=== PATIENT | male | born 1955 | race Caucasian/White ===

== ENCOUNTER 2020-09-13 08:11 | Emergency (ER) | payer OTHER ==
[2020-09-13] MEDS: Sodium Chloride 0.9% 10 ML Syringe FLUSH PRN ×2 (08:15→09:24)
[2020-09-13] MEDS ORDERED: Metoprolol Tartrate 50 MG Tab PO STA (08:37)
[2020-09-13] MEDS ORDERED: Aspirin 81 MG Tab.Chew PO STA (08:37)
--- NOTE | 2020-09-13 08:53 | EDM.PDOC ---
ED HPI GENERAL MEDICAL PROBLEM - General Chief Complaint: Chest Pain Stated Complaint: Dyspnea Time Seen by Provider: 09/13/20 08:35 Source of Information: Reports: Patient, Family History Limitations: Reports: No Limitations - History of Present Illness INITIAL COMMENTS - FREE TEXT/NARRATIVE: Patient presented to the ED because of chest pressure and dyspnea which started at 0630 today and is getting worse. He feels like his chest is caving in and is short of breath even with mild physical activity. He denies having fever,chills, cough or cold symptoms. No palpitations or edema noted. Chest Pain Score (Numeric/FACES): 5 - Related Data Allergies Allergy/AdvReac Type Severity Reaction Status Date / Time No Known Allergies Allergy Verified 09/13/20 15:43 Home Meds: Home Meds Furosemide [Lasix] 20 mg PO DAILY #30 tab 09/13/20 [Rx] ED ROS GENERAL - Review of Systems Review Of Systems: See Below Constitutional: Reports: Fatigue HEENT: Reports: No Symptoms Respiratory: Reports: Shortness of Breath Cardiovascular: Reports: Dyspnea on Exertion, Other (chest pressure) Endocrine: Reports: No Symptoms GI/Abdominal: Reports: No Symptoms : Reports: No Symptoms Musculoskeletal: Reports: No Symptoms Skin: Reports: No Symptoms Neurological: Reports: No Symptoms Psychiatric: Reports: No Symptoms ED EXAM, GENERAL - Physical Exam Exam: See Below Exam Limited By: No Limitations General Appearance: Alert, No Apparent Distress Eye Exam: Bilateral Eye: PERRL Ears: Normal External Exam, Normal Canal Nose: Normal Inspection, Normal Mucosa, No Blood Throat/Mouth: Normal Inspection, Normal Lips, Normal Teeth Head: Atraumatic, Normocephalic Neck: Normal Inspection, Supple, Non-Tender, Full Range of Motion Respiratory/Chest: No Respiratory Distress, Decreased Breath Sounds, Crackles Cardiovascular: Normal Peripheral Pulses, No JVD, No Murmur, Tachycardia GI/Abdominal: Normal Bowel Sounds, Soft, Non-Tender, No Organomegaly, No Distention, No Abnormal Bruit Back Exam: Normal Inspection, Full Range of Motion Extremities: Normal Inspection, Normal Range of Motion, Non-Tender, No Pedal Edema, Normal Capillary Refill Neurological: Alert, Oriented, CN II-XII Intact, Normal Cognition, Normal Reflexes, No Motor/Sensory Deficits Psychiatric: Normal Affect, Normal Mood #1 Interpretation EKG Date: 09/13/20 Time: 08:11 Rhythm: Other (Sinus Tach) Rate (Beats/Min): 113 Russell: Normal P-Wave: Present QRS: Normal ST-T: Normal QT: Normal OK/PQ Interval: 163 Comparison: NA - No Prior EKG EKG Interpretation Comments: Sinus Tach PVC's Course - Vital Signs Text/Narrative:: Lab/EKG/CXR result was reviewed and discussed with patient and his Lasix 40 mg IV x1 Zaroxolyn 2.5 mg PO x1 ASA 324 mg PO x1 Metoprolol tartrate 50 mg PO x1 Last Recorded V/S: Last Vital Signs Temp 36.8 C 09/13/20 08:30 Pulse 108 H 09/13/20 08:54 Resp 13 09/13/20 08:30 BP 158/99 H 09/13/20 08:54 Pulse Ox 98 09/13/20 08:30 - Orders/Labs/Meds Orders: Active Orders 24 hr Category Date Time Status Saline Lock Insert [OM.PC] Routine Oth 09/13/20 08:37 Ordered EKG 12 Lead [EK] Routine Ther 09/13/20 08:37 Ordered Labs: Laboratory Tests 09/13/20 09/13/20 09/13/20 Range/Units 08:50 08:50 08:50 WBC 7.2 (3.2-10.1) x10-3/uL RBC 5.28 (3.90-5.90) x10(6)uL Hgb 14.7 (12.9-17.7) g/dL Hct 43.3 (38.3-50.1) % MCV 82.1 (80.8-98.7) fL MCH 27.9 (27.0-33.3) pg MCHC 33.9 (28.7-35.3) g/dL RDW 13.4 (12.4-15.0) % Plt Count 224 (117-477) x10(3)uL MPV 8.2 (6.7-11.0) fL Neut % (Auto) 69.5 (40.3-71.8) % Lymph % (Auto) 19.6 (15.8-45.3) % George % (Auto) 7.1 (5.5-15.2) % Eos % (Auto) 3.0 (0.1-6.8) % Baso % (Auto) 0.8 (0.3-3.8) % Neut # (Auto) 5.0 (1.7-6.9) x10-3/uL Lymph # (Auto) 1.4 (0.5-4.5) x10-3/uL George # (Auto) 0.5 (0.0-1.2) x10-3/uL Eos # (Auto) 0.2 (0.0-0.6) x10-3/uL Baso # (Auto) 0.1 (0.0-0.3) x10-3/uL D-Dimer, Quantitative (0.0-0.59) mg/LFEU Sodium 137 (135-145) mmol/L Potassium 4.2 (3.5-5.3) mmol/L Chloride 101 (100-110) mmol/L Carbon Dioxide 30 (21-32) mmol/L BUN 18 (7-18) mg/dL Creatinine 1.1 (0.70-1.30) mg/dL Est Cr Clr Drug Dosing TNP Estimated GFR (MDRD) > 60 (>60) BUN/Creatinine Ratio 16.4 (9-20) Glucose 322 H (80-116) mg/dL Calcium 8.4 L (8.6-10.2) mg/dL Total Bilirubin 0.3 (0.1-1.3) mg/dL AST 12 (5-25) IU/L ALT 19 (12-36) U/L Alkaline Phosphatase 88 (56-112) IU/L Troponin I 19.4 (4.0-60.3) pg/mL NT-Pro-B Natriuret Pep (<=125) pg/mL Total Protein 7.4 (6.0-8.0) g/dL Albumin 3.1 L (3.2-4.6) g/dL Globulin 4.3 g/dL Albumin/Globulin Ratio 0.7 09/13/20 09/13/20 Range/Units 08:50 08:50 WBC (3.2-10.1) x10-3/uL RBC (3.90-5.90) x10(6)uL Hgb (12.9-17.7) g/dL Hct (38.3-50.1) % MCV (80.8-98.7) fL MCH (27.0-33.3) pg MCHC (28.7-35.3) g/dL RDW (12.4-15.0) % Plt Count (117-477) x10(3)uL MPV (6.7-11.0) fL Neut % (Auto) (40.3-71.8) % Lymph % (Auto) (15.8-45.3) % George % (Auto) (5.5-15.2) % Eos % (Auto) (0.1-6.8) % Baso % (Auto) (0.3-3.8) % Neut # (Auto) (1.7-6.9) x10-3/uL Lymph # (Auto) (0.5-4.5) x10-3/uL George # (Auto) (0.0-1.2) x10-3/uL Eos # (Auto) (0.0-0.6) x10-3/uL Baso # (Auto) (0.0-0.3) x10-3/uL D-Dimer, Quantitative 0.59 (0.0-0.59) mg/LFEU Sodium (135-145) mmol/L Potassium (3.5-5.3) mmol/L Chloride (100-110) mmol/L Carbon Dioxide (21-32) mmol/L BUN (7-18) mg/dL Creatinine (0.70-1.30) mg/dL Est Cr Clr Drug Dosing Estimated GFR (MDRD) (>60) BUN/Creatinine Ratio (9-20) Glucose (80-116) mg/dL Calcium (8.6-10.2) mg/dL Total Bilirubin (0.1-1.3) mg/dL AST (5-25) IU/L ALT (12-36) U/L Alkaline Phosphatase (56-112) IU/L Troponin I (4.0-60.3) pg/mL NT-Pro-B Natriuret Pep 1856 H* (<=125) pg/mL Total Protein (6.0-8.0) g/dL Albumin (3.2-4.6) g/dL Globulin g/dL Albumin/Globulin Ratio Meds: Medications Discontinued Medications Generic Name Dose Route Start Last Admin Trade Name Freq PRN Reason Stop Dose Admin Aspirin 324 mg 09/13/20 08:37 09/13/20 08:35 Aspirin 81 Mg Tab.Chew PO 09/13/20 08:38 324 mg NOW STA Administration Furosemide 40 mg 09/13/20 09:19 09/13/20 09:24 Furosemide 40 Mg/4 Ml Vial IVPUSH 09/13/20 09:20 40 mg NOW ONE Administration Metolazone 2.5 mg 09/13/20 09:19 09/13/20 09:24 Metolazone 2.5 Mg Tab PO 09/13/20 09:20 2.5 mg NOW STA Administration Metoprolol Tartrate 50 mg 09/13/20 08:37 09/13/20 08:54 Metoprolol Tartrate 50 Mg Tab PO 09/13/20 08:38 50 mg NOW STA Administration Sodium Chloride 10 ml 09/13/20 08:37 09/13/20 09:24 Sodium Chloride 0.9% 10 Ml Syringe FLUSH 10 ml ASDIRECTED PRN Administration Keep Vein Open Departure - Departure Time of Disposition: 10:45 Disposition: Home, Self-Care 01 Condition: Good Clinical Impression: New onset of congestive heart failure Prescriptions: Furosemide [Lasix] 20 mg PO DAILY #30 tab Instructions: Heart Failure, Self Care, [id number], Nonspecific Chest Pain, Adult, [id number] Referrals: Sudeep Salinas MD [Primary Care Provider] - Forms: ED Department Discharge Additional Instructions: Please read discharge instructions on chest pain and congestive heart failure Low salt diet Take lasix/furosemide 20 mg daily in the morning Call your clinic as soon as you get home for a follow up visit this week with regards to your congestive heart failure - My Orders Last 24 Hours: My Active Orders 09/13/20 08:37 Saline Lock Insert [OM.PC] Routine EKG 12 Lead [EK] Routine - Assessment/Plan Last 24 Hours: My Active Orders 09/13/20 08:37 Saline Lock Insert [OM.PC] Routine EKG 12 Lead [EK] Routine
[2020-09-13] MEDS ORDERED: Furosemide 40 MG/4 ML VIAL IVPUSH ONE (09:19)
[2020-09-13] MEDS ORDERED: Metolazone 2.5 MG Tab PO STA (09:19)
--- NOTE | 2020-09-13 13:03 | CR ---
INDICATION: Chest pain, dyspnea, cough. CHEST ONE-VIEW 11366: Two AP upright portable views of the chest were obtained 09/13/20 - no comparisons. The heart appeared normal in size. The mediastinum was unremarkable except for minimal calcification suggested in the arch of the aorta. Heavy markings are scattered about the lungs, but particularly prominent in the lung bases raising question of areas of patchy bronchopneumonia and/or fibrosis. No gross consolidating pneumonia, or effusion was identified. Somewhat flattened diaphragm leaf and hyperaeration raises question of COPD - correlate clinically. Overlying EKG leads are noted. IMPRESSION: 1. There are heavy markings scattered about the lungs, particularly the lung bases, which may be on the basis of pulmonary fibrosis, although areas of patchy pneumonia cannot be excluded - correlate clinically. 2. Possible COPD. 3. ASD aorta is suggested. MTDD
== END 2020-09-13 10:55 | disposition home or self-care (01) ==
LOC: FB.ED 08:11
DX: I50.9 Heart failure, unspecified (principal); R00.0 Tachycardia, unspecified; Z79.899 Other long term (current) drug therapy
CPT/HCPCS: 36415; 71045; 80053; 83880; 84484; 85025; 85379; 93005; 96374; 99285; A9270; J1940

== ENCOUNTER 2020-09-29 04:51 | Emergency (ER) | payer MEDICAID, OTHER ==
[2020-09-29] MEDS ORDERED: Furosemide 40 MG/4 ML VIAL IVPUSH ONE (05:11)
[2020-09-29] MEDS ORDERED: Aspirin 81 MG Tab.Chew PO ONE (05:12)
[2020-09-29] MEDS ORDERED: Nitroglycerin 0.4 MG Tab.SL SL PRN (05:12)
[2020-09-29] MEDS ORDERED: Metolazone 2.5 MG Tab PO STA (05:36)
[2020-09-29] MEDS ORDERED: hydrALAZINE 20 MG/ML SDV IVPUSH STA (05:36)
--- NOTE | 2020-09-29 05:44 | EDM.PDOC ---
ED HPI GENERAL MEDICAL PROBLEM - General Chief Complaint: Cardiovascular Problem Stated Complaint: SOB Time Seen by Provider: 09/29/20 05:00 Source of Information: Reports: Patient, Family History Limitations: Reports: No Limitations - History of Present Illness INITIAL COMMENTS - FREE TEXT/NARRATIVE: Patient is a 64 YO WM who presented to the ED because of sudden onset of dyspnea and chest pressure at 0330 while watching TV. There is no nausea, vomiting or diaphoresis. Denies having any fever, chills, cough/ cold symptoms. He was diagnosed with CHF 2 weeks ago and started on lasix 20 daily, scheduled to have echocardiogram at [facility] this coming . 1 week ago he went for follow up visit at the [facility] in [facility] and his lasix was reduced fro 20 mg to 10 mg daily. - Related Data Allergies Allergy/AdvReac Type Severity Reaction Status Date / Time No Known Allergies Allergy Verified 09/13/20 15:43 Home Meds: Home Meds Furosemide [Lasix] 20 mg PO DAILY #30 tab 09/13/20 [Rx] Past Medical History Cardiovascular History: Reports: Heart Failure, Hypertension Endocrine/Metabolic History: Reports: Diabetes, Type II - Infectious Disease History Infectious Disease History: Reports: Chicken Pox, Measles, Mumps Social & Family History - Family History Family Medical History: No Pertinent Family History - Tobacco Use Tobacco Use Status *Q: Never Tobacco User - Caffeine Use Caffeine Use: Reports: Coffee - Recreational Drug Use Recreational Drug Use: No ED ROS GENERAL - Review of Systems Review Of Systems: See Below Constitutional: Reports: No Symptoms HEENT: Reports: No Symptoms Respiratory: Reports: Shortness of Breath Cardiovascular: Reports: Orthopnea Endocrine: Reports: No Symptoms GI/Abdominal: Reports: No Symptoms : Reports: No Symptoms Musculoskeletal: Reports: No Symptoms Skin: Reports: No Symptoms Neurological: Reports: No Symptoms Psychiatric: Reports: No Symptoms ED EXAM, GENERAL - Physical Exam Exam: See Below Exam Limited By: No Limitations General Appearance: Alert, No Apparent Distress Eye Exam: Bilateral Eye: PERRL Ears: Normal External Exam, Normal Canal Nose: Normal Inspection, Normal Mucosa, No Blood Throat/Mouth: Normal Inspection, Normal Lips, Normal Teeth, Normal Gums Head: Atraumatic, Normocephalic Neck: Normal Inspection, Supple, Non-Tender, Full Range of Motion Respiratory/Chest: No Respiratory Distress, No Accessory Muscle Use, Chest Non- Tender, Decreased Breath Sounds, Crackles Cardiovascular: Normal Peripheral Pulses, Regular Rate, Rhythm, No Edema, No Gallop, No JVD, No Murmur, No Rub, Tachycardia GI/Abdominal: Normal Bowel Sounds, Soft, Non-Tender, No Organomegaly, No Distention, No Abnormal Bruit Back Exam: Normal Inspection, Full Range of Motion Extremities: Normal Inspection, Normal Range of Motion, Non-Tender, No Pedal Edema Neurological: Alert, Oriented, CN II-XII Intact, Normal Cognition #1 Interpretation EKG Date: 09/29/20 Time: 04:48 Rhythm: Other (Sinus tach) Rate (Beats/Min): 118 Rousseau: Normal P-Wave: Present QRS: Normal ST-T: Normal QT: Normal Comparison: Change From Previous EKG EKG Interpretation Comments: Sinus tach Flat t waves anterolateral leads Course - Vital Signs Text/Narrative:: Lab/EKG/CXR result was reviewed and discussed with patient Lasix 40 mg IV x1 Zaroxolyn 2.5 mg PO x1 Hydralazine 20 mg IV x1 NTG 0.4 mg SL x1 ASA 324 mg PO x1 Loveox 90 mg SC x1 Code Status: Full Code Covid test:-pending Case discussed with Dr Palma who agreed with the above plan. Anshul is in divert and patient will be in our ED at [facility] until a bed is available. If he deteriorates then [facility] will expedite the transfer. Last Recorded V/S: Last Vital Signs Temp 35.9 C L 09/29/20 04:52 Pulse 116 H 09/29/20 04:52 Resp 22 H 09/29/20 04:52 BP 176/114 H 09/29/20 05:01 Pulse Ox 96 09/29/20 04:52 - Orders/Labs/Meds Orders: Active Orders 24 hr Category Date Time Status Chest 1V Frontal [CR] Stat Exams 09/29/20 05:26 Taken CORONAVIRUS COVID-19 HADLEY [MOLEC] Stat Lab 09/29/20 06:37 Ordered Nitroglycerin [Nitrostat] Med 09/29/20 05:12 Active 0.4 mg SL Q5M PRN EKG 12 Lead [EK] Routine Ther 09/29/20 05:11 Ordered Medication Orders Nitroglycerin (Nitroglycerin 0.4 Mg Tab.Sl) 0.4 mg SL Q5M PRN PRN Reason: Chest Pain Last Admin: 09/29/20 05:01 Dose: 0.4 mg Documented by: ASHLEY Labs: Laboratory Tests 09/29/20 09/29/20 09/29/20 Range/Units 05:15 05:15 05:15 WBC 9.4 (3.2-10.1) x10-3/uL RBC 5.18 (3.90-5.90) x10(6)uL Hgb 14.3 (12.9-17.7) g/dL Hct 43.0 (38.3-50.1) % MCV 83.0 (80.8-98.7) fL MCH 27.7 (27.0-33.3) pg MCHC 33.4 (28.7-35.3) g/dL RDW 13.7 (12.4-15.0) % Plt Count 241 (117-477) x10(3)uL MPV 8.1 (6.7-11.0) fL Neut % (Auto) 64.1 (40.3-71.8) % Lymph % (Auto) 24.8 (15.8-45.3) % Hooker % (Auto) 7.3 (5.5-15.2) % Eos % (Auto) 3.0 (0.1-6.8) % Baso % (Auto) 0.8 (0.3-3.8) % Neut # (Auto) 6.0 (1.7-6.9) x10-3/uL Lymph # (Auto) 2.3 (0.5-4.5) x10-3/uL Hooker # (Auto) 0.7 (0.0-1.2) x10-3/uL Eos # (Auto) 0.3 (0.0-0.6) x10-3/uL Baso # (Auto) 0.1 (0.0-0.3) x10-3/uL PT (9.0-11.1) sec INR (1.00-1.24) APTT (24.4-33.2) SECONDS Sodium 141 (135-145) mmol/L Potassium 4.1 (3.5-5.3) mmol/L Chloride 103 (100-110) mmol/L Carbon Dioxide 28 (21-32) mmol/L BUN 19 H (7-18) mg/dL Creatinine 1.3 (0.70-1.30) mg/dL Est Cr Clr Drug Dosing TNP Estimated GFR (MDRD) 56 L (>60) BUN/Creatinine Ratio 14.6 (9-20) Glucose 302 H (80-116) mg/dL Calcium 8.9 (8.6-10.2) mg/dL Total Bilirubin 0.3 (0.1-1.3) mg/dL AST 17 D (5-25) IU/L ALT 22 D (12-36) U/L Alkaline Phosphatase 94 (56-112) IU/L Troponin I 19.4 (4.0-60.3) pg/mL NT-Pro-B Natriuret Pep 1106 H* (<=125) pg/mL Total Protein 7.6 (6.0-8.0) g/dL Albumin 3.2 (3.2-4.6) g/dL Globulin 4.4 g/dL Albumin/Globulin Ratio 0.7 08/25/21 Range/Units 05:15 WBC (3.2-10.1) x10-3/uL RBC (3.90-5.90) x10(6)uL Hgb (12.9-17.7) g/dL Hct (38.3-50.1) % MCV (80.8-98.7) fL MCH (27.0-33.3) pg MCHC (28.7-35.3) g/dL RDW (12.4-15.0) % Plt Count (117-477) x10(3)uL MPV (6.7-11.0) fL Neut % (Auto) (40.3-71.8) % Lymph % (Auto) (15.8-45.3) % Hooker % (Auto) (5.5-15.2) % Eos % (Auto) (0.1-6.8) % Baso % (Auto) (0.3-3.8) % Neut # (Auto) (1.7-6.9) x10-3/uL Lymph # (Auto) (0.5-4.5) x10-3/uL Hooker # (Auto) (0.0-1.2) x10-3/uL Eos # (Auto) (0.0-0.6) x10-3/uL Baso # (Auto) (0.0-0.3) x10-3/uL PT 9.9 (9.0-11.1) sec INR 0.91 L (1.00-1.24) APTT 26.3 (24.4-33.2) SECONDS Sodium (135-145) mmol/L Potassium (3.5-5.3) mmol/L Chloride (100-110) mmol/L Carbon Dioxide (21-32) mmol/L BUN (7-18) mg/dL Creatinine (0.70-1.30) mg/dL Est Cr Clr Drug Dosing Estimated GFR (MDRD) (>60) BUN/Creatinine Ratio (9-20) Glucose (80-116) mg/dL Calcium (8.6-10.2) mg/dL Total Bilirubin (0.1-1.3) mg/dL AST (5-25) IU/L ALT (12-36) U/L Alkaline Phosphatase (56-112) IU/L Troponin I (4.0-60.3) pg/mL NT-Pro-B Natriuret Pep (<=125) pg/mL Total Protein (6.0-8.0) g/dL Albumin (3.2-4.6) g/dL Globulin g/dL Albumin/Globulin Ratio Meds: Medications Generic Name Dose Route Start Last Admin Trade Name Freq PRN Reason Stop Dose Admin Nitroglycerin 0.4 mg 09/29/20 05:12 09/29/20 05:01 Nitroglycerin 0.4 Mg Tab.Sl SL 0.4 mg Q5M PRN Administration Chest Pain Discontinued Medications Generic Name Dose Route Start Last Admin Trade Name Freq PRN Reason Stop Dose Admin Aspirin 324 mg 09/29/20 05:12 09/29/20 04:56 Aspirin 81 Mg Tab.Chew PO 09/29/20 05:13 324 mg ONETIME ONE Administration Enoxaparin Sodium 90 mg 09/29/20 06:48 Enoxaparin 100 Mg/1 Ml Syringe SUBCUT 09/29/20 06:49 ONETIME ONE Furosemide 40 mg 09/29/20 05:11 09/29/20 05:18 Furosemide 40 Mg/4 Ml Vial IVPUSH 09/29/20 05:12 40 mg NOW ONE Administration Hydralazine HCl 20 mg 09/29/20 05:36 09/29/20 05:42 Hydralazine 20 Mg/Ml Sdv IVPUSH 09/29/20 05:37 20 mg NOW STA Administration Metolazone 2.5 mg 09/29/20 05:36 09/29/20 05:42 Metolazone 2.5 Mg Tab PO 09/29/20 05:37 2.5 mg NOW STA Administration Departure - Departure Time of Disposition: 06:05 Disposition: DC/Tfer to [facility] 02 Reason for Transfer *Q: Other Condition: Good Clinical Impression: New onset of congestive heart failure, Hypertensive crisis, Acute coronary syndrome Referrals: PCP,None [Primary Care Provider] - Forms: ED Department Discharge Sepsis Event Note (ED) - Evaluation Sepsis Screening Result: No Definite Risk - Focused Exam Vital Signs: Vital Signs Temp Pulse Resp BP BP Pulse Ox Pulse Ox 09/29/20 05:01 176/114 H 09/29/20 04:52 35.9 C L 116 H 22 H 159/125 H 87 L 96 - My Orders Last 24 Hours: My Active Orders 09/29/20 05:11 EKG 12 Lead [EK] Routine 09/29/20 05:12 Nitroglycerin [Nitrostat] 0.4 mg SL Q5M PRN 09/29/20 05:26 Chest 1V Frontal [CR] Stat 09/29/20 06:37 CORONAVIRUS COVID-19 HADLEY [MOLEC] Stat - Assessment/Plan Last 24 Hours: My Active Orders 09/29/20 05:11 EKG 12 Lead [EK] Routine 09/29/20 05:12 Nitroglycerin [Nitrostat] 0.4 mg SL Q5M PRN 09/29/20 05:26 Chest 1V Frontal [CR] Stat 09/29/20 06:37 CORONAVIRUS COVID-19 HADLEY [MOLEC] Stat
[2020-09-29] MEDS ORDERED: Enoxaparin 100 MG/1 ML Syringe SUBCUT ONE (06:48)
[2020-09-29] MEDS ORDERED: Nicotine 21 MG/24 Hr Patch TRDERM ONE (11:28)
== END 2020-09-29 13:30 ==
LOC: FB.ED 04:51
DX: I24.9 Acute ischemic heart disease, unspecified (principal); I11.0 Hypertensive heart disease with heart failure; I50.9 Heart failure, unspecified; I16.9 Hypertensive crisis, unspecified; E11.9 Type 2 diabetes mellitus without complications; Z79.899 Other long term (current) drug therapy; Z20.822 Contact with and (suspected) exposure to COVID-19
CPT/HCPCS: 36415; 71045; 80053; 83880; 84484; 85025; 85610; 85730; 87635; 93005; 96372; 96374; 96375; 99285; A9270; J0360; J1650; J1940; U0002

== ENCOUNTER 2022-03-20 20:10 | Emergency (ER) | payer MEDICARE, MEDICAID ==
[2022-03-20] MEDS ORDERED: Ketorolac 30 MG/ML SDV IM ONE (20:17)
[2022-03-20] MEDS ORDERED: Lidocaine 2% Viscous Solution 15 ML UD TOP ONE (20:41)
[2022-03-20] MEDS ORDERED: Ondansetron 4 MG Tab.DIS PO STA ×2 (20:51→20:53)
[2022-03-20] MEDS ORDERED: Polyethylene Glycol/Electrolytes 4,000 ML Bottle PO ONE (20:52)
[2022-03-20] MEDS ORDERED: Lidocaine 2% HCl 6 ML Jel MM ONE (23:02)
[2022-03-20] MEDS ORDERED: Lactulose Soln 10 GM/15 ML 30 ML UD Cup PO STA (23:33)
[2022-03-21] MEDS ORDERED: Ketorolac 30 MG/ML SDV IM ONE (00:07)
[2022-03-21] MEDS ORDERED: Sodium Phosphate,Monobasic/Sodium Phosphate,Dibasic Enema 133 ML Bottle RECTAL ONE (00:25)
== END 2022-03-21 01:30 | disposition home or self-care (01) ==
LOC: FB.ED 20:10
DX: K59.00 Constipation, unspecified (principal); K64.4 Residual hemorrhoidal skin tags; I11.0 Hypertensive heart disease with heart failure; I50.9 Heart failure, unspecified; E11.9 Type 2 diabetes mellitus without complications; Z88.8 Allergy status to other drugs, medicaments and biological substances; Z91.012 Allergy to eggs; Z79.82 Long term (current) use of aspirin; Z79.02 Long term (current) use of antithrombotics/antiplatelets; Z79.4 Long term (current) use of insulin; Z79.899 Other long term (current) drug therapy
CPT/HCPCS: 51701; 51702; 74018; 96372; 99283; 99283-25; A9270-GY; J1885; Q0162